=== PATIENT | female | born 1980 | race Caucasian/White ===

== ENCOUNTER 2024-05-21 00:47 | Emergency (ER) | payer MEDICAID ==
[~2024-05-21] VITALS: Ht 162.6 cm; Wt 113.4 kg
[2024-05-21] MEDS ORDERED: ONDANSETRON HCL/PF 4 MG/2 ML VIAL ONE (01:43)
[2024-05-21] MEDS ORDERED: diphenhydrAMINE HCL 50 MG/ML VIAL ONE ×2 (01:43→03:20)
[2024-05-21] MEDS ORDERED: MORPHINE SULFATE INJ 4 MG/ML DISP.SYRIN ONE ×2 (01:43→01:59)
[2024-05-21] MEDS ORDERED: methylPREDNISolone SOD SUCC 40 MG/ML VIAL ONE (01:44)
[2024-05-21] MEDS ORDERED: FAMOTIDINE/PF INJ 20 MG/2 ML VIAL IV ONE (01:44)
[2024-05-21 01:50] LABS: BASOPHILS # (AUTO) 0.1 K/uL (0.0-0.2); BASOPHILS % (AUTO) 1.1 % (0.0-2.0); EOSINOPHILS # (AUTO) 0.2 K/uL (0.0-0.7); EOSINOPHILS % (AUTO) 1.8 % (0.0-6.0); HEMATOCRIT 43 % (33-45); HEMOGLOBIN 13.7 g/dL (11.5-14.8); LYMPHOCYTES # (AUTO) 2.7 K/uL (0.8-4.8); LYMPHOCYTES % (AUTO) 32.6 % (20.0-44.0); MEAN CORPUSCULAR HEMOGLOBIN 29 PG (26.0-33.0); MEAN CORPUSCULAR HGB CONC 32 g/dl (31.0-36.0); MEAN CORPUSCULAR VOLUME 91 fL (82-100); MONOCYTES # (AUTO) 0.8 K/uL (0.1-1.30); MONOCYTES % (AUTO) 9.2 % (2.0-12.0); NEUTROPHILS # (AUTO) 4.7 K/uL (1.8-8.9); NEUTROPHILS % (AUTO) 55.3 % (43.0-81.0); PLATELET COUNT (AUTO) 407 K/uL (150-450); RED BLOOD CELL COUNT(AUTO) 4.72 MIL/uL (4.0-5.2); RED CELL DISTRIBUTION WIDTH 16.7 % (11.5-15.0); WHITE BLOOD COUNT (AUTO) 8.4 K/uL (4.3-11.0)
[2024-05-21] MEDS: ONDANSETRON HCL/PF 4 MG/2 ML VIAL IVP ONE (02:02)
[2024-05-21] MEDS: FAMOTIDINE/PF INJ 20 MG/2 ML VIAL IV ONE (02:02)
[2024-05-21] MEDS: MORPHINE SULFATE INJ 2 MG/ML DISP.SYRIN IV ONE (02:02)
[2024-05-21] MEDS: IV NS 0.9% 1,000 ML BAG IV ONE (02:02)
[2024-05-21] MEDS: diphenhydrAMINE HCL 50 MG/ML VIAL IV ONE ×2 (02:02→03:25)
[2024-05-21] MEDS: methylPREDNISolone SOD SUCC 40 MG/ML VIAL IV ONE (02:02)
[2024-05-21 02:10] LABS: CREATININE 0.8 mg/dL (0.6-1.3); POTASSIUM 3.9 mmol/L (3.5-5.1)
[2024-05-21 02:16] LABS: ALBUMIN 3.4 g/dL (3.4-5.0); BILIRUBIN,TOTAL 0.3 mg/dL (0.2-1.0); TOTAL PROTEIN, SERUM 7.2 g/dL (6.4-8.2)
[2024-05-21 02:24] VITALS: BP 135/79; TEMP 98.5; O2SAT 98
[2024-05-21] MEDS ORDERED: IOHEXOL-300 100 ML VIAL IV ONE (02:40)
[2024-05-21] MEDS ORDERED: IV NS 0.9% 250 ML IV ONE (02:41)
[2024-05-21] MEDS ORDERED: HYDROMORPHONE 1 MG/1 ML DISP.SYRIN ONE (03:01)
[2024-05-21] MEDS: HYDROMORPHONE 1 MG/1 ML DISP.SYRIN IV ONE (03:07)
== END 2024-05-21 04:03 | disposition left against medical advice (07) ==
LOC: ER 00:49
DX: R10.31 Right lower quadrant pain (principal); R11.0 Nausea; Z88.8 Allergy status to other drugs, medicaments and biological substances; Z91.041 Radiographic dye allergy status
CPT/HCPCS: 99285; 74177; 96375; 96374; 96361; 96376; 85025; 80048; 83690; 80076; 36415; J1200 ×2; J2270 ×2; J3490; J2919; J2405; J7050; Q9967; J1170